=== PATIENT | female | born 1985 | race Caucasian/White ===

== ENCOUNTER 2016-04-05 00:28 | Emergency (ER) | payer OTHER ==
--- NOTE | 2016-04-05 01:40 | ED NURSING NOTES ---
Clinical Report - Nurses [facility] [address] [place] [address] 04/05/2016 0:29 Patient: FERNANDO ANTONIO TRIAGE Triage time 00:Apr 05 2016. Acuity: LEVEL 3. Chief Complaint: "ASTHMA ATTACK". 00:36 04/05/16. --00:36 Charito Guajardo R.N. 00:33 04/05/16. BP: 100/72. HR: 66. RR: 18. O2 saturation: 98%. Temp: 97.9 F. Pain level now: 0/10. --00:36 Charito Guajardo R.N. Weight: 63.5 kg. Height/Length: 61 inches. BMI: 26.5. --00:33 Charito Guajardo R.N. Medications INHALER . --00:33 Charito Guajardo R.N. Medication/allergy information source: the patient. --00:36 Charito Guajardo R.N. Allergies No Known Drug Allergy. --00:33 Charito Guajardo R.N. History Arrived by private vehicle. Historian: patient. This started today. ( ran out of inhaler). She has had a cough and wheezing. No fever or chills. 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 PAST MEDICAL HX: Last normal menstrual period- 1 weeks ago. Denies current . SOCIAL HX: Never smoker. No alcohol use or drug use. No infectious disease exposure. ABUSE ASSESSMENT: No report of abuse. FALL RISK ASSESSMENT: Fall risk assessment completed. No fall risk identified. NUTRITIONAL RISK ASSESSMENT: The nutritional risk assessment revealed no deficiencies. FUNCTIONAL ASSESSMENT: Functional assessment: no impairments noted. LEARNING NEEDS ASSESSMENT: The learning needs assessment revealed no barriers. SKIN INTEGRITY ASSESSMENT: Skin integrity risk assessment completed. No skin integrity risk identified. --00:36 Charito Guajardo R.N. PROBLEMS: Migraine Headache. --00:34 Charito Guajardo R.N. ADDITIONAL SURGERIES: . --00:34 Charito Guajardo R.N. Interventions ID band on patient. --00:36 Charito Guajardo R.N. PHYSICAL ASSESSMENT 00:38 04/05/16. Ambulatory to room. GENERAL / NEURO / PSYCH: Alert. Oriented X 4. HEENT: Mucous membranes are pink. RESPIRATORY: Mild respiratory distress. Respirations not labored. The patient can speak in full sentences. Nonproductive cough. Breath sounds within normal limits. No accessory muscle use or retractions. CVS: Capillary refill less than 2 seconds. GI / : Abdomen soft. SKIN: Skin is warm and dry. Normal skin turgor. --00:38 Charito Guajardo R.N. NURSING PROGRESS NOTES 00:38 04/05/16. The initial plan of care for this patient includes an assessment with efforts to address the presence of pain. This plan of care was discussed with the patient. Pulse oximeter and NIBP monitor placed on patient; monitor alarms on. Patient gowned. Reassurance given. Patient identifiers checked. Call light placed in reach. Side rails up x 1. Bed placed in lowest position. Brakes of bed on. Patient ready for evaluation. --00:38 Charito Guajardo R.N. DISPOSITION / DISCHARGE Departure time: 01:44. Condition at departure: improved. No learning barriers present. Discharge instructions provided and reviewed with the patient. Reviewed warnings. Reviewed medication(s). The patient was discharged by the physician. She was discharged home and unaccompanied at time of discharge. She left the Emergency Department ambulatory and via private vehicle. Patient driving. --01:44 Freddie Frausto R.N. 01:43 04/05/16. BP: 94/63. HR: 64. RR: 14. O2 saturation: 99%. Pain level now 0/10. --01:44 Freddie Frausto R.N. Locked/Released at 04/05/2016 1:44 by Freddie Frausto R.N.
--- NOTE | 2016-04-05 01:40 | ED CLINICAL REPORT ---
Clinical Report - Physicians/Mid Levels [facility] [address] [place] [address] 04/05/2016 0:29 Patient: FERNANDO ANTONIO Time Seen: 01:37 Apr 05 2016. Arrived- By private vehicle. Historian- patient. CPT: ER phys charges level 3 (#[id number]). HISTORY OF PRESENT ILLNESS Chief Complaint: DYSPNEA and WHEEZING. (patient developed a cough 3 days ago that is dry and nonproductive. this is triggered some bronchospasm and dyspnea and her and she is out of her inhaler.). Is still present. The dyspnea is described as moderate. The patient has had a cough. No sputum production or chest pain or discomfort. Takes asthma medications, ONLY WITH uri. Similar symptoms previously: As bad. Recent medical care: Not recently seen/assessed. REVIEW OF SYSTEMS No sore throat, sinus drainage, fever, chills or muscle aches. No headache, palpitations, calf pain, nausea or abdominal pain. No diarrhea, black stools, difficulty with urination, excessive urination or skin rash. No enlarged lymph nodes or vomiting. The patient has had a nasal discharge. All systems otherwise negative, except as recorded above. PAST HISTORY Asthma. Medications: INHALER . Allergies: No Known Drug Allergy. SOCIAL HISTORY Never smoker. No alcohol use or drug use. ADDITIONAL NOTES The nursing notes have been reviewed. PHYSICAL EXAM Vital Signs: 04/05/2016 00:33 BP: 100/72. HR: 66. RR: 18. O2 saturation: 98%. Temp: 97.9 F. Pain level now: 0/10. Appearance: Alert. No acute distress. Eyes: Pupils equal, round and reactive to light. Eyes normal inspection. ENT: Ears normal. Nose normal. Uvula midline. Neck: Normal inspection. Neck supple. CVS: Normal heart rate and rhythm. Heart sounds normal. Pulses normal. Respiratory: No respiratory distress. Expiratory mild bilateral wheezes in the bases. Abdomen: Soft and nontender. Back: Normal inspection. Skin: Skin warm. Normal skin color. No rash. Extremities: Extremities exhibit normal ROM. No lower extremity edema. Neuro: Oriented X 3. No motor deficit. No sensory deficit. Reflexes normal. PROGRESS AND PROCEDURES Patient/family counseled. Disposition: Discharged. Condition: stable. CLINICAL IMPRESSION Acute viral bronchitis associated with bronchospasm. INSTRUCTIONS No strenuous activity. Drink plenty of fluids. Your Current Medications: CONTINUE TAKING THE FOLLOWING MEDICATIONS: INHALER *. Prescription Medications: Albuterol HFA oral inhaler: inhale 2 puffs via spacer every 4 hours as needed for wheezing or difficulty breathing, until symptoms improve. Dispense one (1) unit. No refill. Follow-up: Follow up with your doctor in one week if not better. Understanding of the discharge instructions verbalized by patient. (Electronically signed by Bart Munson MD 04/07/2016 21:09)
--- NOTE | 2016-04-05 01:40 | ED CLINICAL REPORT ---
Clinical Report - Physicians/Mid Levels [facility] [address] [place] [address] 04/05/2016 0:29 Patient: FERNANDO ANTONIO Time Seen: 01:37 Apr 05 2016. Arrived- By private vehicle. Historian- patient. CPT: ER phys charges level 3 (#[id number]). HISTORY OF PRESENT ILLNESS Chief Complaint: DYSPNEA and WHEEZING. (patient developed a cough 3 days ago that is dry and nonproductive. this is triggered some bronchospasm and dyspnea and her and she is out of her inhaler.). Is still present. The dyspnea is described as moderate. The patient has had a cough. No sputum production or chest pain or discomfort. Takes asthma medications, ONLY WITH uri. Similar symptoms previously: As bad. Recent medical care: Not recently seen/assessed. REVIEW OF SYSTEMS No sore throat, sinus drainage, fever, chills or muscle aches. No headache, palpitations, calf pain, nausea or abdominal pain. No diarrhea, black stools, difficulty with urination, excessive urination or skin rash. No enlarged lymph nodes or vomiting. The patient has had a nasal discharge. All systems otherwise negative, except as recorded above. PAST HISTORY Asthma. Medications: INHALER . Allergies: No Known Drug Allergy. SOCIAL HISTORY Never smoker. No alcohol use or drug use. ADDITIONAL NOTES The nursing notes have been reviewed. PHYSICAL EXAM Vital Signs: 04/05/2016 00:33 BP: 100/72. HR: 66. RR: 18. O2 saturation: 98%. Temp: 97.9 F. Pain level now: 0/10. Appearance: Alert. No acute distress. Eyes: Pupils equal, round and reactive to light. Eyes normal inspection. ENT: Ears normal. Nose normal. Uvula midline. Neck: Normal inspection. Neck supple. CVS: Normal heart rate and rhythm. Heart sounds normal. Pulses normal. Respiratory: No respiratory distress. Expiratory mild bilateral wheezes in the bases. Abdomen: Soft and nontender. Back: Normal inspection. Skin: Skin warm. Normal skin color. No rash. Extremities: Extremities exhibit normal ROM. No lower extremity edema. Neuro: Oriented X 3. No motor deficit. No sensory deficit. Reflexes normal. PROGRESS AND PROCEDURES Patient/family counseled. Disposition: Discharged. Condition: stable. CLINICAL IMPRESSION Acute viral bronchitis associated with bronchospasm. INSTRUCTIONS No strenuous activity. Drink plenty of fluids. Your Current Medications: CONTINUE TAKING THE FOLLOWING MEDICATIONS: INHALER *. Prescription Medications: Albuterol HFA oral inhaler: inhale 2 puffs via spacer every 4 hours as needed for wheezing or difficulty breathing, until symptoms improve. Dispense one (1) unit. No refill. Follow-up: Follow up with your doctor in one week if not better. Understanding of the discharge instructions verbalized by patient. (Electronically signed by Bart Munson MD 04/07/2016 21:09)
--- NOTE | 2016-04-05 01:40 | ED NURSING NOTES ---
Clinical Report - Nurses [facility] [address] [place] [address] 04/05/2016 0:29 Patient: FERNANDO ANTONIO TRIAGE Triage time 00:Apr 05 2016. Acuity: LEVEL 3. Chief Complaint: "ASTHMA ATTACK". 00:36 04/05/16. --00:36 Charito Guajardo R.N. 00:33 04/05/16. BP: 100/72. HR: 66. RR: 18. O2 saturation: 98%. Temp: 97.9 F. Pain level now: 0/10. --00:36 Charito Guajardo R.N. Weight: 63.5 kg. Height/Length: 61 inches. BMI: 26.5. --00:33 Charito Guajardo R.N. Medications INHALER . --00:33 Charito Guajardo R.N. Medication/allergy information source: the patient. --00:36 Charito Guajardo R.N. Allergies No Known Drug Allergy. --00:33 Charito Guajardo R.N. History Arrived by private vehicle. Historian: patient. This started today. ( ran out of inhaler). She has had a cough and wheezing. No fever or chills. 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 PAST MEDICAL HX: Last normal menstrual period- 1 weeks ago. Denies current . SOCIAL HX: Never smoker. No alcohol use or drug use. No infectious disease exposure. ABUSE ASSESSMENT: No report of abuse. FALL RISK ASSESSMENT: Fall risk assessment completed. No fall risk identified. NUTRITIONAL RISK ASSESSMENT: The nutritional risk assessment revealed no deficiencies. FUNCTIONAL ASSESSMENT: Functional assessment: no impairments noted. LEARNING NEEDS ASSESSMENT: The learning needs assessment revealed no barriers. SKIN INTEGRITY ASSESSMENT: Skin integrity risk assessment completed. No skin integrity risk identified. --00:36 Charito Guajardo R.N. PROBLEMS: Migraine Headache. --00:34 Charito Guajardo R.N. ADDITIONAL SURGERIES: . --00:34 Chraito Guajardo R.N. Interventions ID band on patient. --00:36 Charito Guajardo R.N. PHYSICAL ASSESSMENT 00:38 04/05/16. Ambulatory to room. GENERAL / NEURO / PSYCH: Alert. Oriented X 4. HEENT: Mucous membranes are pink. RESPIRATORY: Mild respiratory distress. Respirations not labored. The patient can speak in full sentences. Nonproductive cough. Breath sounds within normal limits. No accessory muscle use or retractions. CVS: Capillary refill less than 2 seconds. GI / : Abdomen soft. SKIN: Skin is warm and dry. Normal skin turgor. --00:38 Charito Guajardo R.N. NURSING PROGRESS NOTES 00:38 04/05/16. The initial plan of care for this patient includes an assessment with efforts to address the presence of pain. This plan of care was discussed with the patient. Pulse oximeter and NIBP monitor placed on patient; monitor alarms on. Patient gowned. Reassurance given. Patient identifiers checked. Call light placed in reach. Side rails up x 1. Bed placed in lowest position. Brakes of bed on. Patient ready for evaluation. --00:38 Charito Guajardo R.N. DISPOSITION / DISCHARGE Departure time: 01:44. Condition at departure: improved. No learning barriers present. Discharge instructions provided and reviewed with the patient. Reviewed warnings. Reviewed medication(s). The patient was discharged by the physician. She was discharged home and unaccompanied at time of discharge. She left the Emergency Department ambulatory and via private vehicle. Patient driving. --01:44 Freddie Frausto R.N. 01:43 04/05/16. BP: 94/63. HR: 64. RR: 14. O2 saturation: 99%. Pain level now 0/10. --01:44 Freddie Frausto R.N. Locked/Released at 04/05/2016 1:44 by Freddie Frausto R.N.
--- NOTE | 2016-04-07 21:09 | ED MED RECONCILIATION SUMMARY ---
Patient: FERNANDO ANTONIO Medication Reconciliation Report [facility] VisitID: [id number] [address] [place] [address] 30y, F Registration Date/Time: 04/05/2016 Weight: 63.5 kg Height/Length: 61 in. BMI: 26.5 ALLERGIES: No Known Drug Allergy The patient's Home Medications are listed below: CONTINUE TAKING THE FOLLOWING MEDICATIONS: INHALER The source(s) of the original Home Medication information: patient The following Medications were given to the patient in the Emergency Department: None. The following Medications were prescribed to the patient: Albuterol HFA oral inhaler: inhale 2 puffs via spacer every 4 hours as needed for wheezing or difficulty breathing, until symptoms improve. Dispense one (1) unit. No refill. -- Bart Munson MD
--- NOTE | 2016-04-07 21:09 | ED MAR SUMMARY ---
..... Medication Administration Record [facility] [address], [place] [id number] Patient: FERNANDO ANTONIO Visit ID: [id number] 30y, F Weight: 63.5 kg Height/Length: 61 in BMI: 26.5 ALLERGIES: No Known Drug Allergy
--- NOTE | 2016-04-07 21:09 | ED DISCHARGE INSTRUCTIONS ---
Patient: FERNANDO ANTONIO General Instructions [facility] VisitID: [id number] [place] [address] 30y, F Registration Date/Time: 04/05/2016 Acute viral bronchitis associated with bronchospasm. INSTRUCTIONS No strenuous activity. Drink plenty of fluids. Your Current Medications: CONTINUE TAKING THE FOLLOWING MEDICATIONS: INHALER *. Prescription Medications: Albuterol HFA oral inhaler: inhale 2 puffs via spacer every 4 hours as needed for wheezing or difficulty breathing, until symptoms improve. Dispense one (1) unit. No refill. Follow-up: Follow up with your doctor in one week if not better. Understanding of the discharge instructions verbalized by patient. ADDITIONAL INFORMATION Bronchitis With Wheezing (Viral Or Bacterial: Adult) Bronchitis is an infection of the air passages. It often occurs during the common cold and is usually caused by a virus. Symptoms include cough with mucus (phlegm) and low-grade fever. If there is a lot of inflammation, air flow is restricted. The air passages may also go into spasm, especially if you are an asthmatic. This causes wheezing and difficulty breathing even in persons who do not have asthma. Bronchitis usually lasts 7-14 days. The wheezing should improve with treatment during the first week. An inhaler is often prescribed to relax the air passages and stop wheezing. Antibiotics will be prescribed if your doctor thinks there is also a secondary bacterial infection. Home Care: If symptoms are severe, rest at home for the first 2-3 days. When resuming activity, don't let yourself become overly tired. Do not smoke and avoid exposure to the smoke of others. You may use acetaminophen (Tylenol) or ibuprofen (Motrin, Advil) to control fever, unless another medicine was prescribed. [NOTE: If you have chronic liver or kidney disease or ever had a stomach ulcer or GI bleeding, talk with your doctor before using these medicines.] (Aspirin should never be used in anyone under 18 years of age who is ill with a fever. It may cause severe liver damage.) Your appetite may be poor so a light diet is fine. Avoid dehydration by drinking 6-8 glasses of fluids per day (water, soft, drinks, juices, tea, soup, etc.). Extra fluids will help loosen secretions in the lungs. Ylgq-mnn-zxyjpfi cough medicines that containdextromethorphan(such as Robitussin DM) and decongestants (Actifed or Sudafed) may help relieve cough and congestion. [NOTE: Do not use decongestants if you have high blood pressure.] If you were given an inhaler, use it exactly as directed. If you need to use it more often than prescribed, your condition may be worsening. Contact your doctor or this facility. If prescribed, finish all antibiotic medicine, even if you are feeling better after only a few days. Follow Up With Your Doctor Or As Directed If You Are Not Starting To Feel Better After Three Days. [NOTE: If you are age 65 or older, or if you have chronic asthma or COPD, we recommend a pneumococcal vaccination every five years and a yearly influenza vaccination (flu shot) every . Ask your doctor about this. If you had an x-ray or EKG (electrocardiogram), it will be reviewed by a specialist. You will be notified of any new findings that may affect your care.] Get Prompt Medical Attention If Any Of The Following Occur: Increased wheezing, shortness of breath or pain with breathing Fever of 100.4F (38C) oral or higher, not better with fever medication Coughing up blood or increasing amounts of colored sputum Weakness, drowsiness, headache, facial pain, ear pain or a stiff neck Lower leg swelling, tenderness, redness or pain Albuterol Sulfate Pressurized inhalation, suspension What is this medicine? ALBUTEROL (al BYOO ter ole) is a bronchodilator. It helps open up the airways in your lungs to make it easier to breathe. This medicine is used to treat and to prevent bronchospasm. How should I use this medicine? This medicine is for inhalation through the mouth. Follow the directions on your prescription label. Take your medicine at regular intervals. Do not use more often than directed. Make sure that you are using your inhaler correctly. Ask you doctor or health care provider if you have any questions. 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 Special care may be needed. What side effects may I notice from receiving this medicine? Side effects that you should report to your doctor or health clinical care coordinator as soon as possible: allergic reactions like skin rash, itching or hives, swelling of the face, lips, or tongue breathing problems chest pain feeling faint or lightheaded, falls high blood pressure irregular heartbeat fever muscle cramps or weakness pain, tingling, numbness in the hands or feet vomiting Side effects that usually do not require medical attention (report to your doctor or health clinical care coordinator if they continue or are bothersome): cough difficulty sleeping headache nervousness or trembling stomach upset stuffy or runny nose throat irritation unusual taste What may interact with this medicine? anti-infectives like chloroquine and pentamidine caffeine cisapride diuretics medicines for colds medicines for depression or for emotional or psychotic conditions medicines for weight loss including some herbal products methadone some antibiotics like clarithromycin, erythromycin, levofloxacin, and linezolid some heart medicines steroid hormones like dexamethasone, cortisone, hydrocortisone theophylline thyroid hormones What if I miss a dose? If you miss a dose, use it as soon as you can. If it is almost time for your next dose, use only that dose. Do not use double or extra doses. Where should I keep my medicine? Keep out of the reach of children. Store at room temperature between 15 and 30 degrees C (59 and 86 degrees F). The contents are under pressure and may burst when exposed to heat or flame. Do not freeze. This medicine does not work as well if it is too cold. Throw away any unused medicine after the expiration date. Inhalers need to be thrown away after the labeled number of puffs have been used or by the expiration date; whichever comes first. Ventolin HFA should be thrown away 12 months after removing from foil pouch. Check the instructions that come with your medicine. What should I tell my health care provider before I take this medicine? They need to know if you have any of the following conditions: diabetes heart disease or irregular heartbeat high blood pressure pheochromocytoma seizures thyroid disease an unusual or allergic reaction to albuterol, levalbuterol, sulfites, other medicines, foods, dyes, or preservatives or trying to get breast-feeding What should I watch for while using this medicine? Tell your doctor or health clinical care coordinator if your symptoms do not improve. Do not use extra albuterol. If your asthma or bronchitis gets worse while you are using this medicine, call your doctor right away. If your mouth gets dry try chewing sugarless gum or sucking hard candy. Drink water as directed. You have been given the following additional information: Bronchitis With Wheezing (Adult) Albuterol Sulfate Pressurized inhalation, suspension No strenuous activity. (Electronically signed by Bart Munson MD 04/07/2016 21:09)
--- NOTE | 2016-04-07 21:09 | ED MAR SUMMARY ---
..... Medication Administration Record [facility] [address] [place], [place] [id number] Patient: FERNANDO ANTONIO Visit ID: [id number] 30y, F Weight: 63.5 kg Height/Length: 61 in BMI: 26.5 ALLERGIES: No Known Drug Allergy
--- NOTE | 2016-04-07 21:09 | ED MED RECONCILIATION SUMMARY ---
Patient: FERNANDO ANTONIO Medication Reconciliation Report [facility] VisitID: [id number] [address] [place] [address] 30y, F Registration Date/Time: 04/05/2016 Weight: 63.5 kg Height/Length: 61 in. BMI: 26.5 ALLERGIES: No Known Drug Allergy The patient's Home Medications are listed below: CONTINUE TAKING THE FOLLOWING MEDICATIONS: INHALER The source(s) of the original Home Medication information: patient The following Medications were given to the patient in the Emergency Department: None. The following Medications were prescribed to the patient: Albuterol HFA oral inhaler: inhale 2 puffs via spacer every 4 hours as needed for wheezing or difficulty breathing, until symptoms improve. Dispense one (1) unit. No refill. -- Bart Munson MD
== END 2016-04-05 01:45 | disposition home or self-care (01) ==
LOC: ED SRH 00:28
DX: J20.8 Acute bronchitis due to other specified organisms (principal); J45.909 Unspecified asthma, uncomplicated